=== PATIENT | male | born 1980 | race African-American/Black ===

== ENCOUNTER 2020-01-08 05:13 | Emergency (ER) | payer OTHER, SELFPAY ==
[2020-01-08 05:21] VITALS: BP 122/82; PULSE 60; RESP 16; TEMP 36.7; O2SAT 98; BMI 25.7
[2020-01-08] MEDS: Lidocaine HCl 1 % MPF 5 ML VIAL INFILTRATI (05:45)
--- NOTE | 2020-01-08 06:15 | ED.WOUNDLAC ---
HPI - Wound/Laceration General Chief Complaint: Wound/Laceration Stated Complaint: LAC Time Seen by Provider: 01/08/20 05:37 History of Present Illness HPI narrative: This is a 39-year-old male who presents after having dropped the edge of the landing gear from his tractor trailer onto his left eyebrow which resulted in a laceration to the area without loss of consciousness and patient denies any visual abnormalities. Patient is not up-to-date on his tetanus shot. Related Data Allergies Allergy/AdvReac Type Severity Reaction Status Date / Time No Known Allergies Allergy Verified 01/08/20 05:37 Review of Systems Review of Systems: Pertinent positives and negatives as stated in HPI 10 point review systems is otherwise negative. PMFSH Past Medical History Source: nursing notes reviewed Social History Social History Advance Directives: No Advance Directives Information Provided: No Physical Exam Vital Signs: Vital Signs: Vital Signs Temp Pulse Resp BP Pulse Ox 01/08/20 05:21 98.1 F 60 16 122/82 98 Body Mass Index 25.7 VITAL SIGNS: Reviewed. GENERAL: Well developed, well nourished, in no acute distress. HEAD: Normocephalic/atraumatic, EYES: PERRLA, EOMI intact without pain, no nystagmus/pallor/icterus noted; LEFT EYEBROW: 3 cm, linear, laceration with mild bleeding still present. EARS: Ext canals without abnormality, TMs non-bulging and non-erythematous NOSE: Nares patent bilateral OROPHARYNX: no oral lesions noted, posterior pharynx clear and non-erythematous without noted tonsillar enlargement/erythema/exudates NECK: Supple, no adenopathy LUNGS: Normal breath sounds. No adventitious sounds or accessory muscle use. SpO2<98%> CARDIOVASCULAR: Regular rate and rhythm without noted murmurs, no JVD or lower extremity edema. ABDOMEN: Soft, non-tender, non-distended with bowel sounds. No rigidity. No guarding. No palpable masses or hernias noted MUSCULOSKELETAL: No tenderness, deformities, or effusions noted on gross inspection. EXTREMITIES: No cyanosis, clubbing or edema. SKIN: Inspection of the skin reveals no rashes, ulcerations, jaundice, pallor, or petechiae. NEUROLOGIC: Alert and oriented x 4. Strength and sensation to light touch were grossly intact Course Course Course Narrative: This is a 39-year-old male with history and clinical presentation consistent with uncomplicated linear laceration to the left eyebrow which was repaired with 6-0 chromic gut. Patient tolerated the procedure well and there were no observed complications. Patient was discharged to home in stable condition with instructions to remove the sutures with tweezers as a begin to dissolve Procedures Laceration Laceration 1: Site: face Side (If applicable): left Size (cm): 3 Description: linear and clean Depth: simple, single layer Local Anesthetic: lidocaine 1% Amount of anesthesia used (mL): 2 Pre-repair: wound explored, irrigated extensively and deep structures intact Skin layer closed with: other ( chromic gut) Size (cm): 6-0 Number of sutures: 6 Technique: simple, interrupted Discharge Plan Discharge Clinical Impression: Laceration Patient Disposition: Home, Self-Care Instructions: Facial Laceration (ED) Additional Instructions: 1. Tylenol 1000 mg, orally, every 6 hours as needed for pain control. Do not exceed 4000 mg within 24 hours. 2. ibuprofen 400 mg, orally with milk or food, every 6 hours as needed for pain control. 3. apply ice, 5-10 minutes, 3 times a day for additional control of swelling. You may develop a noticeable black eye . 4. You have been given dissolvable sutures. This means that with time they will gradually breakdown themselves and you can completely remove with tweezers. 5. You may cleanse with soap and water and gently blot dry. The patient and/or family acknowledge understanding of results (as applicable), diagnosis, treatment plan, need for follow up, and symptoms that should prompt a return to the emergency room. Referrals: Physician,Unknown [Primary Care Provider] - 2 days (For follow-up evaluation of your left eyebrow laceration.) Discharge Date/Time: 01/08/20 06:36
== END 2020-01-08 06:36 | disposition home or self-care (01) ==
PROVIDERS: Emergency Provider Student in an Organized Health Care Education/Training Program
DX: S01.112A Laceration without foreign body of left eyelid and periocular area, initial encounter (principal); W20.8XXA Other cause of strike by thrown, projected or falling object, initial encounter; Y93.9 Activity, unspecified; Y92.9 Unspecified place or not applicable; Y99.9 Unspecified external cause status
CPT/HCPCS: 12013; 90471; 90715; 99283; 99284